=== PATIENT | female | born 1955 | race Caucasian/White ===

== ENCOUNTER 2017-07-16 00:43 | Emergency (ER) | payer OTHER ==
[~2017-07-16] VITALS: Ht 167.6 cm; Wt 109.8 kg
[~2017-07-16 00:43] MED LIST: GLIMEPIRIDE4 MG PO; INVOKANA300 MG PO; JANUMET 1000 MG1 TAB PO; LEVOTHYROXIN0.075 M3 PO; PROTONIX40 MG PO; QUINAPRIL20 MG PO
[2017-07-16 01:07] LABS: LYMPH # 2.6 K/mm3 (0.7-4.5); LYMPH % 31.9 % (10-50.0)
--- NOTE | 2017-07-16 02:14 | Emergency Room Report ---
History of Present Illness Time Seen by MD Krishnan Presenting Problem in Triage Pt arrived:Wheelchair Presenting Problem:PT STATES SHE THINKS SHE IS HAVING PAIN FROM A KIDNEY STONE. NAUSEATED AND VOMITING. PAIN IN LOWER ABD AND RIGHT FLANK AND BACK PAIN. 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 N Clinical Suspician of Infection? N Mental Status: 1 - Regular (Normal Baseline) Sepsis Risk:Low Sepsis Risk Have you (or family members/close friends) recently traveled outside the [place]? N If Yes, where/when: Have you had exposure to infectious disease within the past month? N TB? Other? Specify: Source patient, RN notes reviewed, family, old records Exam Limitations no limitations Comment rt flank pain with nausea today with no fever or rash Cardiac Chest Pain Chest pain indicative of cardiac No Timing/Duration this evening Severity moderate ALLERGIES Coded Allergies: Penicillins (07/16/17) Sulfa (Sulfonamide Antibiotics) (07/16/17) chlordiazepoxide (From LIBRAX (WITH CLIDINIUM)) (07/16/17) clidinium (From LIBRAX (WITH CLIDINIUM)) (07/16/17) iodine (07/16/17) Home Medications Active Scripts Pantoprazole Sodium (Protonix) 40 MG PO DAILY #30 ECT Prov: 02/19/15 Reported Medications LEVOTHYROXINE SOD (Levothyroxine 0.075MG Tablet) 0.075 MG PO DAILY #30 Glimepiride 4 MG PO DAILY #30 Canagliflozin (Invokana) 300 MG PO DAILY #30 Metformin Hydrochloride/Lilibeth (Janumet 1000 Mg-50 Mg) 1 TAB PO DAILY #60 Quinapril Hcl (Quinapril HCl) 20 MG PO DAILY #30 History Medical History General CAD? No Angina: No SC: No Hypertension? Yes Hyperlipidemia? Yes CHF? No COPD? No Asthma? No Anemia? No Hernia? No Thyroid Problems? No Hypothyroidism? No CVA? No Seizures? No Diabetes? Yes Insulin Dependent: Yes Insulin Pump: No Home FSBS? No Renal Insuffiency? No End Stage Renal Disease? No UTI? No Stones? Yes GB Disease: Yes Nephritic Syndrome? No Asplenia? No Hepatitis? No Sickle Cell Disease? No Arthritis? No Cataracts? No Glaucoma? No MRSA? No TB? No Cancer? Yes Site: ENDOMETRIAL Immunization Hx DT/Tetanus NOT SURE Surgical Hx Previous Surgery?Y GALLBLADDER HYSTERECTOMY RODS PLACED IN RT. LEG D & C Social History Smoking Hx Smoker: Never Smoker Tobacco: No Alcohol Alcohol: No Drugs none Review of Systems All Other Systems Reviewed and Negative Constitutional denies fever Eyes denies drainage ENT denies: ear discharge, epistaxis, throat pain. Respiratory denies cough, denies shortness of breath, denies wheezing Cardiovascular denies chest pain, denies palpitations, denies syncope Gastrointestinal see HPI, abdominal pain, denies diarrhea, denies vomiting Genitourinary denies: dysuria, frequency, hesitancy, hematuria. Musculoskeletal denies back pain, denies joint pain, denies neck pain Skin denies rash Psychiatric/Neurological denies headache, denies seizure Physical Exam Vital Signs Vital Signs Date Time Temp Pulse Resp B/P Pulse O2 O2 Flow FiO2 Ox Delivery Rate 07/16 0220 87 20 148/77 97 07/16 0122 20 07/16 0049 98.2 84 20 147/95 99 - WBC >12,000 or <4,000 or 10% bands? 2 or more SIRS Criteria Met? B/P:147/95 MAP:112 Creatinine >2.0? UA output<0.5ml/kg/hr for 2 hrs? Platelet count >100,000? Lactate >2.0mmol/1? INR >1.2 or PTT > than 60 sec? Evidence of Organ Dysfunction? Provider documented clinical suspician of infection? N Sepsis Criteria Count: 1 Sepsis Risk: Low Sepsis Risk General Appearance no apparent distress Eye Exam - bilateral eye PERRL, bilateral eye EOMI Ear, Nose, Throat normal ENT inspection Neck supple Respiratory Status No: respiratory distress. Cardiovascular regular rate/rhythm, systolic murmur Peripheral Pulses Pulses normal Yes Gastrointestinal soft, no organomegaly, no pulsatile mass, no guarding, no rebound Back no CVA tenderness, no vertebral tenderness Extremities pedal edema Strength 4 Upper Ext (L), 4 Upper Ext (R), 4 Lower Ext (L), 4 Lower Ext (R) Neurologic alert, [employer] II-XII nml as tested, no motor/sensory deficits Reflexes Reflexes normal No Mental status normal mood/affect Skin no rash cons.w/shingles Medical Decision Making LABS/Meds/Orders Pt receiving controlled substance in ED? No Results/Orders Laboratory Tests 07/16/17 0230: Urine Color YELLOW, Urine Appearance CLEAR, Urine pH 6.0, Ur Specific [place] 1.010, Urine Protein NEGATIVE, Urine Ketones NEGATIVE, Urine Blood 3+ H, Urine Nitrate NEGATIVE, Urine Bilirubin NEGATIVE, Urine Urobilinogen 0.2, Ur Leukocyte Esterase NEGATIVE, Urine RBC TNTC, Urine WBC 3-5, Urine Bacteria 1+, Urine Mucus OCC, Urine Glucose 3+ H 07/16/17 0100: Sodium 131 L, Potassium 3.8, Chloride 102, Carbon Dioxide 25, BUN 8, Creatinine 0.8, Estimated Creat Clear 128, Estimated GFR (MDRD) 73, Glucose 302 H, Calcium 9.5, Total Bilirubin 0.4, AST 47 H, ALT 47, Alkaline Phosphatase 96, Total Protein 7.4, Albumin 3.6, Globulin 3.8 H, Albumin/Globulin Ratio 0.9 L, Lipase 236, WBC 8.3, RBC 4.94, Hgb 14.0, Hct 42.0, MCV 85.0, RDW 13.7, Plt Count 164, MPV 9.8, Gran % 59.8, Gran # 5.0, Lymphocytes % 31.9, Monocytes % 4.0, Eosinophils % 3.8, Basophils % 0.6, Lymphocytes # 2.6, Monocytes # 0.3, Eosinophils # 0.3, Basophils # 0.1, PUBS MCHC 33.5, MCH 28.5 Current Medication Orders Sig/Yolanda Start time Last Medication Dose Route Stop Time Status Admin Ketorolac 30 MG ONCE ONE 07/16 115 DC 07/16 Tromethamine IV 07/16 116 012 Ondansetron HCl 4 MG ONCE ONE 07/16 115 DC 07/16 IV 07/16 116 012 Sodium Chloride 1,000 ML .Q1H1M 07/16 115 DC 07/16 IV 07/16 215 012 Sodium Chloride 10 ML PRN PRN 07/16 115 AC IV 07/17 104 Ketorolac 0 .STK-MED ONE 07/16 106 DC Tromethamine .ROUTE Ondansetron HCl 0 .STK-MED ONE 07/16 106 DC .ROUTE Sodium Chloride 1,000 ML .STK-MED ONE 08/23 0106 DC IV Sodium Chloride 10 ML PRN PRN 07/16 100 AC IV 07/17 0047 Orders Procedure Date/time Status DIET-NOTHING BY MOUTH 07/[address] ABD & PELVIS W/O CONTRAST 07/[address] SCAN REQ 07/16 48 Complete IV SALINE LOCK 07/16 48 Active URINALYSIS/COMPLETE 07/16 48 Complete LIPASE 07/16 48 Complete COMPLETE METABOLIC PANEL 07/16 48 Complete CBC WITH AUTO DIFF 07/16 48 Complete XRAY/CT/US XRAY/CT/US CT abdomen, pelvis CT interpretation by discussed w/radiologist Time results known: 212 CT Results abnormal (5 mm stone rt ) Departure Departure Time of Disposition 218 Disposition DC Home or Self Care(routine) Clinical Impression Primary Impression: Renal colic on right side Condition STABLE Referrals Ketty Nicholson APRN (Family) Patient Instructions DI for Kidney Stones Additional Instructions fluids and call pcp for follow up Discharge Counseling Counseled pt/family regarding diagnosis, test results, medications/RX, follow up needs ED Critical Care Critical Care No at 0307
[2017-07-16 02:34] LABS: URINE BILIRUBIN - DIPSTICK NEGATIVE (NEG); URINE BLOOD 3+ (NEG)
[2017-07-16 03:30] VITALS: BP 152/76
--- NOTE | 2017-07-16 05:35 | RADIOLOGY REPORT PS360 ---
CT ABD PELVIS W/O CONTRAST CLINICAL INDICATION: Right flank pain, lower abdominal pain FLANK PAIN ORDERING PHYSICIAN: Naveen Hirsch MD PATIENT AGE: 61 years COMPARISON: None TECHNIQUE: Axial images obtained with sagittal and coronal reformats. PROCEDURE: Oral Contrast: None IV Contrast: None . FINDINGS: Lung bases are clear. The right hepatic lobe is prominent at 25 cm cephalad to caudad. No focal liver lesions evident. There has been a prior cholecystectomy. No biliary dilatation. The spleen is enlarged at 17 cm. The adrenal glands and pancreas are unremarkable. There is moderate right hydronephrosis and hydroureter secondary to a 6 mm right ureterovesical junction stone . There is mild straightening of the right perinephric and periureteral fat. A 1 mm stone is present in the upper pole the right kidney. There is a 9 mm stone in the left renal pelvis and an additional 9 mm stone in the lower pole the left kidney. No hydronephrosis. Urinary bladder wall is thickened however the bladder is contracted. There are postsurgical changes of the intra-abdominal wall in the pelvic region with thickening of the abdominal wall. There has been prior hysterectomy. IMPRESSION: 1. 6 mm right ureterovesical junction stone with moderate hydroureteronephrosis. 2. Bilateral nephrolithiasis
== END 2017-07-16 03:47 | disposition home or self-care (01) ==
LOC: ER 00:43
PROVIDERS: Emergency Medicine
DX: N13.2 Hydronephrosis with renal and ureteral calculous obstruction (principal); Z87.442 Personal history of urinary calculi; E11.65 Type 2 diabetes mellitus with hyperglycemia; Z79.4 Long term (current) use of insulin; I10 Essential (primary) hypertension; Z79.899 Other long term (current) drug therapy
CPT/HCPCS: J2405